=== PATIENT | male | born 1995 | race Caucasian/White ===

== ENCOUNTER 2020-01-27 18:20 | Emergency (ER) | payer OTHER, BC ==
[~2020-01-27] VITALS: Ht 182.9 cm; Wt 74.8 kg
[2020-01-27] MEDS ORDERED: KEFLEX500 MG PO (19:59)
== END 2020-01-27 20:16 | disposition home or self-care (01) ==
LOC: ER 18:20
DX: S62.302A Unspecified fracture of third metacarpal bone, right hand, initial encounter for closed fracture (principal); S61.411A Laceration without foreign body of right hand, initial encounter; W23.0XXA Caught, crushed, jammed, or pinched between moving objects, initial encounter; Y92.89 Other specified places as the place of occurrence of the external cause; Y99.0 Civilian activity done for income or pay
CPT/HCPCS: 12001; 29125; 73120; 99283-25; A9270-GY